=== PATIENT | male | born 1955 | race Caucasian/White ===

== ENCOUNTER 2016-10-10 17:43 | Emergency (ER) | payer OTHER ==
[~2016-10-10] VITALS: Ht 172.7 cm; Wt 105.5 kg
[2016-10-10 18:07] VITALS: BP 135/96; PULSE 78; RESP 16; O2SAT 94
--- NOTE | 2016-10-10 19:37 | ED.REPORT ---
HPI-Extremity Problem Lower Date of Service Oct 10, 2016 ED Provider: Doc,Ed MD History of Present Illness: helping lift mom in bed, pushed off with left foot around 2 pm today. felt and heard a loud pop in left lower leg, immediate pain Nursing Notes Stated Complaint: LEFT LEG/CALF INJURY Chief Complaint: Extremity Trauma Nursing Notes Reviewed: Yes Allergies: Coded Allergies: lisinopril (Verified Allergy, Severe, angioedema, 10/10/16) Ifvvsmn-Eeu-Dwh Reductase Inhibitor (Verified Allergy, Unknown, 10/10/16) Cramping, weakness General Time Seen by MD: 19:37 Chief Complaint Leg injury left Hx Obtained From: Patient Past Medical History Past Medical History Denies: Asthma, Diabetes mellitus Past Surgical History orif humeral fractureon the left Smoking History Never Smoker Social History Alcohol Use: Denies alcohol use Drug Use: Denies drug use Other Social History: Occupation retired as nurse [employer] Ambulatory Status Independent Review of Systems Basic Review of Systems Eyes: Vision NL, No discharge : No dysuria, No frequency Psychiatric: Normal thought content Physical Exam Initial Vital Signs Vital Signs (First) Date Time Temp Pulse Resp B/P Pulse Ox O2 Delivery O2 Flow Rate FiO2 10/10/16 18:07 37.0 78 16 135/96 94 10/10/16 20:14 Room Air Initial VS: Reviewed, Vital signs normal General/Constitutional: Well-developed, Well-nourished Head / Eyes: Atraumatic, Normocephalic, PERRL ENT: Mucous membranes moist, Conjunctiva normal, No scleral icterus Neck: Supple, Non-tender, Full range of motion Respiratory: Breath sounds normal, Clear to auscultation, No respiratory distress Cardiovascular: Regular rate & rhythm, Heart sounds normal, Intact distal pulses Abdomen / GI: Soft, Non-tender, No guarding, No rebound, No distention Back: No CVA tenderness Lymphatic: No lymphadenopathy Upper Extremities: Vascular intact, Neuro intact, No swelling, No tenderness Skin: Warm, Dry, No cyanosis Neurologic: Alert, Oriented, Nonfocal Psychiatric: Mood/affect normal, Behavior normal, Normal thought content Lower Extremity / Pelvis / MS: Atraumatic, Inspection NL, Full range of motion patient able to dorsiflex and planter flex foot. Palpable deficit along tendon sheath General/Constitutional: Awake, Alert, No acute distress, Well appearing, Well developed, Well hydrated Respiratory / Chest: Atraumatic, Breath sounds NL, Breath sounds = bilat, No respiratory distress Cardiovascular: Heart rate NL, Regular rhythm, Heart sounds NL, No gallop Re-Eval/Medical Decision Med Decision/Clinical Course 61 year old male with partial tendon rupture of left achilles. No sign of complete rupture Discharge & Departure Impression: Primary Impression: Partial Achilles tendon tear Encounter type: initial encounter Laterality: left Qualified Code: S86.012A - Strain of left Achilles tendon, initial encounter Disposition: Home Patient Instructions: Achilles Tendon Rupture (ED) Additional Instructions: The exam and history is consistent with achilles tendon tear. Wear the boot at all times. Please schedule an appointment with Dr. Ashby. Can use hydrocodone 1 tablet at night as needed for extreme unrelenting pain. Referrals: Jamal Ortiz (PCP) Alex Ashby DO EDSupervising Provider for APC: Lindy Merida MD copies to: Alex Ashby Sue ARNP Oct 10, 2016 19:37
[2016-10-10 20:14] VITALS: PULSE 80; RESP 16; O2SAT 97
== END 2016-10-10 20:14 | disposition home or self-care (01) ==
LOC: SED 17:43
DX: S86.012A Strain of left Achilles tendon, initial encounter (principal); X50.9XXA Other and unspecified overexertion or strenuous movements or postures, initial encounter; Y93.9 Activity, unspecified; Y92.9 Unspecified place or not applicable; Y99.9 Unspecified external cause status; Z88.8 Allergy status to other drugs, medicaments and biological substances